=== PATIENT | female | born 1975 | race Hispanic/Latino ===

== ENCOUNTER 2019-02-11 17:21 | Emergency (ER) | payer SELFPAY ==
[2019-02-11] MEDS ORDERED: SODIUM CHLORIDE 0.9% 1000 ML 1,000 ML IV ONE ×2 (18:22→18:25)
[2019-02-11] MEDS ORDERED: LIDOCAINE (2%) 20 MG/1 ML VIAL 20 ML MDV INFILTRATI ONE (18:25)
[2019-02-11] MEDS ORDERED: SODIUM CHLORIDE 0.9% IRR 500 ML BOTTLE IR ONE (18:25)
[2019-02-11] MEDS ORDERED: TETANUS,DIPH,PERTUSS(ACELL) VACCINE 0.5 ML SYRINGE IM ONE (18:27)
--- NOTE | 2019-02-11 18:29 | Emergency Department Report ---
ED General Adult HPI - General Chief complaint: Syncope Stated complaint: SYNCOPAL EPISODE Time Seen by Provider: 02/11/19 18:11 Source: patient, EMS ( EMS documentation not available at time of chart dictation ), RN notes reviewed, old records reviewed Mode of arrival: Stretcher Limitations: No Limitations - History of Present Illness Initial comments: This is a 43-year-old female. I have not evaluated this patient in the past. Her past medical history includes tobacco use, former history of methamphetamine use, history of ovarian cancer, rheumatoid arthritis, depression, status post recent intentional overdose on Tegretol, Ativan, and Naprosyn. The overdose was on February 08. The patient is currently on a 1013 at a psychiatric hospital. She is brought to the hospital today by emergency medical services for fall, and loss of consciousness. Patient reports that since she's been hospitalized at the psychiatric institution, she's felt malaise, fatigue, sweating. She is not having physical pain. She reports that she felt sweaty, and threw up 3-4 times today. The emesis is nonbloody and nonbilious. She is not nauseous now. She d enies bloody diarrhea. She denies urinary symptoms. She denies DVT and pulmonary embolism risk factors. She reports that today she was waiting for lunch, when she lost consciousness. Prior to passing out, she does not have headache, neck pain, chest pain or abdominal pain. After the fall, she has a mild frontal headache, and superior lip laceration. She has no midline neck pain. She can't recall her last tetanus vaccination. -: Gradual, Sudden Location: face Radiation: non-radiation Severity scale (0 -10): 8 Quality: stabbing Consistency: constant Improves with: rest Worsens with: movement - Related Data Previous Rx's Medication Instructions Recorded Last Taken Type Magnesium Oxide 500 mg PO QDAY #10 capsule 02/11/19 Unknown Rx Allergies Allergy/AdvReac Type Severity Reaction Status Date / Time No Known Allergies Allergy Verified 02/11/19 19:00 ED Review of Systems ROS: Stated complaint: SYNCOPAL EPISODE Other details as noted in HPI Constitutional: malaise, weakness. denies: fever Eyes: denies: eye discharge ENT: denies: congestion Respiratory: denies: wheezing Cardiovascular: syncope. denies: chest pain Gastrointestinal: nausea, vomiting. denies: hematemesis, melena, hematochezia Genitourinary: denies: dysuria Musculoskeletal: myalgia Skin: lesions Neurological: weakness Psychiatric: anxiety, depression ED Past Medical Hx - Past Medical History Previous Medical History?: Yes Hx Psychiatric Treatment: Yes (major depressive disorder) - Surgical History Past Surgical History?: No - Social History Smoking Status: Never Smoker Substance Use Type: None - Medications Home Medications: Home Medications Medication Instructions Recorded Confirmed Last Taken Type Magnesium Oxide 500 mg PO QDAY #10 capsule 02/11/19 Unknown Rx ED Physical Exam - General Limitations: No Limitations General appearance: alert, in no apparent distress - Head Head exam: Present: atraumatic, normocephalic - Eye Eye exam: Present: normal appearance, PERRL, EOMI, other (visual acuity intact to finger counting, color perception, reading at a close distance). Absent: nystagmus - ENT ENT exam: Present: mucous membranes moist, TM's normal bilaterally, normal external ear exam, other (there is no nasal septal hematoma. There is no hemotympanum). Absent: normal exam (there is a superficial inferior lip laceration. There is an avulsion noted to the tissue on the oral aspect of the lower lip. Tooth #9 appears to be anteriorly subluxed. There is no laxity in the teeth.) - Neck Neck exam: Present: normal inspection, full ROM. Absent: tenderness, meningismus - Respiratory Respiratory exam: Present: normal lung sounds bilaterally. Absent: respiratory distress - Cardiovascular Cardiovascular Exam: Present: regular rate, normal rhythm, normal heart sounds. Absent: bradycardia, tachycardia, irregular rhythm, systolic murmur, diastolic murmur, rubs, gallop - GI/Abdominal GI/Abdominal exam: Present: soft, normal bowel sounds. Absent: distended, tenderness, guarding, rebound, rigid, pulsatile mass - Extremities Exam Extremities exam: Present: normal inspection, full ROM, other (2+ pulses noted in the bilateral upper, lower extremities. There is no long bone tenderness. Musculoskeletal compartments are soft. The pelvis is stable.). Absent: pedal edema, joint swelling, calf tenderness - Back Exam Back exam: Present: normal inspection - Neurological Exam Neurological exam: Present: alert, oriented X3, other (there is no facial droop. The tongue is midline. Extraocular movements are intact bilaterally. Patient speaking in full complete sentences. Shoulder shrug is intact bilaterally. Hearing is grossly intact bilaterally. Visual acuity intact to finger counting and color perception at a close distance. 5/5 strength 4 extremities. Sensation intact to light touch in 4 extremities.) - Psychiatric Psychiatric exam: Present: flat affect - Skin Skin exam: Present: warm, other (lower lip laceration is noted.) ED Course Vital Signs 02/11/19 02/11/19 02/11/19 18:01 18:09 18:15 Temperature 98 F Pulse Rate 65 80 102 H Respiratory 22 17 Rate Blood Pressure 113/68 Blood Pressure 123/75 [Left] O2 Sat by Pulse 100 100 Oximetry 02/11/19 02/11/19 02/11/19 18:30 18:45 19:00 Temperature Pulse Rate 82 82 88 Respiratory 15 14 20 Rate Blood Pressure 119/80 129/75 118/84 Blood Pressure [Left] O2 Sat by Pulse 100 100 Oximetry 02/11/19 02/11/19 02/11/19 19:15 19:30 19:45 Temperature Pulse Rate 88 87 89 Respiratory 16 23 15 Rate Blood Pressure 131/83 132/84 111/70 Blood Pressure [Left] O2 Sat by Pulse 100 100 100 Oximetry 02/11/19 02/11/19 02/11/19 20:00 20:15 21:32 Temperature Pulse Rate 91 H 94 H Respiratory 16 15 Rate Blood Pressure 113/71 121/79 121/79 Blood Pressure [Left] O2 Sat by Pulse 100 100 100 Oximetry 02/11/19 02/11/19 02/11/19 21:45 22:00 22:15 Temperature Pulse Rate Respiratory Rate Blood Pressure 122/75 122/66 131/71 Blood Pressure [Left] O2 Sat by Pulse 99 98 98 Oximetry - Reevaluation(s) Reevaluation #1: 02/11/19 19:02 Differential diagnosis, including but not limited to: Orthostasis, vagal event, medication side effect, structural cardiac disease, pulmonary embolism, arrhythmia, intracranial injury, facial injury, AAA, pulmonary embolus Assessment and plan: 43-year-old female with episode of unprovoked syncope, proceeding symptoms of nausea, vomiting, sweating, and weakness. Currently, she is afebrile with reassuring vital signs and clinically sober. Patient is clinically sober at this time. The cervical spine is cleared through nexus and mosotho c spine rule We will obtain CT scan brain and facial bones to exclude traumatic injury. Given that patient is endorsing unprovoked loss of consciousness, nausea, vomiting and chills, we will obtain urinalysis, CT scan of the abdomen pelvis. We will also obtain a CT angiogram of the chest to exclude pulmonary embolism. We'll give the patient a tetanus vaccination, repaired her lip laceration. She is listless but arousable at this time, sober, and not violent currently. Current psychiatric medications include Abilify, BuSpar, Celexa. Reevaluation #2: 02/11/19 19:05 Adverse reactions related to Abilify: Cardiovascular: Tachycardia (?2%), anxiety (?1%) Central nervous system: Extrapyramidal reaction (10%), drowsiness (9%), sedation (5%), dizziness (4%), dystonia (2%), fatigue (dose-related; 1% to 2%), restlessness (?1%), insomnia Adverse reactions related to Celexa: Central nervous system: Drowsiness (18%; dose related), insomnia (15%; dose related) Dermatologic: Diaphoresis (11%; dose related) Gastrointestinal: Nausea (21%), xerostomia (20%) 1% to 10%: Cardiovascular: Prolonged Q-T interval on ECG (2%), hypotension (?1%), orthostatic hypotension (?1%), tachycardia (?1%), bradycardia (1%) Adverse reactions related to BuSpar >10%: Central nervous system: Dizziness (3% to 12%) 1% to 10%: Cardiovascular: Chest pain (?1%) Central nervous system: Drowsiness (10%), headache (6%), nervousness (5%), confusion (2%), excitement (2%), numbness (2%), outbursts of anger (2%), abnormal dreams (?1%), ataxia (1%) paresthesia (1%) Patient believes that these are new medications for her. We will hold his medications in the emergency room. If no obvious culprit for loss of consciousness is identifiable here in the emergency room, and patient does not have additional loss of consciousness, we will recommend that these psychiatric medications be held. 02/11/19 20:54 Addendum to above. States not taking Celexa. States she is taking BuSpar, and Abilify, both which are new for her. Reevaluation #3: 02/11/19 22:23 Patient here for 5 hours without episodes of syncope. Troponin negative 2. Repeat EKG pending. CT scan brain, facial bones, chest, abdomen, pelvis negative for acute disease. Reevaluation #4: 02/11/19 22:24 Nursing team states that patient was able to walk with a steady gait. No untoward events or episodes of loss of consciousness have been noted. Patient will need to follow-up with an outpatient oral surgeon or dentist for her dentalgia, primary care doctor or office assistant receptionist for her history of syncope. At this point in time, based off of the history, physical, objective imaging studies and laboratory studies, lack of demonstrated arrhythmias, patient does not meet criteria for hospitalization. Reevaluation #5: 02/11/19 22:39 EKG unchanged 2. We will plan to discharge. - Laceration /Wound Repair Lower Medial Face Wound Location: mouth Wound Length (cm): 1 Wound's Depth, Shape: linear, irregular, contused tissue ("y shaped") Wound Explored: clean Irrigated w/ Saline (ccs): 250 Betadine Prep?: No Anesthesia: 1% Lidocaine Volume Anesthetic (ccs): 250 Wound Debrided: minimal Suture Size/Type: 6:0 Number of Sutures: 4 Layer Closure?: No Sterile Dressing Applied?: No Progress: The laceration was premedicated with topical viscous lidocaine. Then, it was gently irrigated with 250 mL of sterile saline at adequate pressure. The wound is then explored. No foreign bodies are noted. Anesthetized with 3 mL of 1% lidocaine without epinephrine using a 26-gauge needle. 4 interrupted 6-0 monofilament sutures are placed, with good cosmetic approximation, and the patient tolerated this procedure well. ED Medical Decision Making - Lab Data Result diagrams: 02/11/19 18:36 02/11/19 21:15 Vital Signs 02/11/19 18:09 Temperature 98 F Pulse Rate 80 Respiratory 22 Rate Blood Pressure 123/75 [Left] O2 Sat by Pulse 100 Oximetry Lab Results 02/11/19 Range/Units 18:36 WBC 11.8 H (4.5-11.0) K/mm3 RBC 4.43 (3.65-5.03) M/mm3 Hgb 11.2 (10.1-14.3) gm/dl Hct 35.5 (30.3-42.9) % MCV 80 (79-97) fl MCH 25 L (28-32) pg MCHC 32 (30-34) % RDW 15.1 (13.2-15.2) % Plt Count 230 (140-440) K/mm3 Lymph % (Auto) 9.9 L (13.4-35.0) % [place] % (Auto) 4.6 (0.0-7.3) % Eos % (Auto) 1.3 (0.0-4.3) % Baso % (Auto) 0.3 (0.0-1.8) % Lymph # 1.2 (1.2-5.4) K/mm3 [place] # 0.5 (0.0-0.8) K/mm3 Eos # 0.2 (0.0-0.4) K/mm3 Baso # 0.0 (0.0-0.1) K/mm3 Seg Neutrophils % 83.9 H (40.0-70.0) % Seg Neutrophils # 9.9 H (1.8-7.7) K/mm3 - EKG Data -: EKG Interpreted by Me EKG shows normal: sinus rhythm Rate: normal - EKG Data When compared to previous EKG there are: previous EKG unavailable 02/11/19 19:04 The EKG today shows a sinus rhythm for minute, normal axis, QTC is 445 ms, biphasic T-wave in V2, there is poor R-wave progression, the EKG is abnormal, the EKG is not consistent with STEMI. - Radiology Data Radiology results: pending Critical care attestation.: If time is entered above; I have spent that time in minutes in the direct care of this critically ill patient, excluding procedure time. ED Disposition Clinical Impression: History of syncope Lip laceration Qualifiers: Encounter type: initial encounter Qualified Code(s): S01.511A - Laceration without foreign body of lip, initial encounter Disposition: DC/TX-65 PSY HOSP/PSY UNIT Is pt being admited?: No Does the pt Need Aspirin: No Condition: Stable Additional Instructions: Recommend that patient not drive or operate motor vehicles for the next 6 candida hs, or until cleared to do so by a primary care doctor or office assistant receptionist. Recommend discontinuing Abilify, Celexa, BuSpar, as these medications have side effects which may make the patient drowsy and may have cardiovascular side effects which may have made the patient more prone to loss of consciousness. Recommend patient following up with a dentist within the next 7 days. Recommend patient following up with the primary care doctor or office assistant receptionist for loss of consciousness within the next 7 days. Recommend patient have facial stitches taken out in 5 days. Advance diet as tolerated, drink 4-6 cups of water per day, avoid sedating medications, return to the emergency room right away with new, worsened or different symptoms, or symptoms not present on the initial emergency room evaluation. Advance diet as tolerated. Avoid foods that are hard to chew and swallow. Patient may wash facial lacerations with gentle soap and water once every 12-24 hours. Patient may apply [id number] bacitracin to external lip if she so desires. Bacitracin may be applied once every 12-24 hours to the lip laceration. Take the magnesium oxide supplementation as directed. Prescriptions: Magnesium Oxide 500 mg PO QDAY #10 capsule Referrals: [facility] [Provider Group] - 3-5 Days [facility] [Outside] - 3-5 Days [facility] [Provider Group] - 3-5 Days
[2019-02-11] MEDS ORDERED: LIDOCAINE VISCOUS 2% 15 ML ORAL LIQD MM NR (18:30)
[2019-02-11 18:55] LABS: Basophils % (Auto) 0.3 % (0.0-1.8); Eosinophils # (Auto) 0.2 K/mm3 (0.0-0.4); Eosinophils % (Auto) 1.3 % (0.0-4.3); Hematocrit 35.5 % (30.3-42.9); Hemoglobin 11.2 gm/dl (10.1-14.3); Lymphocytes # (Auto) 1.2 K/mm3 (1.2-5.4); Lymphocytes % (Auto) 9.9 % (13.4-35.0); Mean Corpuscular HGB Conc 32 % (30-34); Mean Corpuscular Volume 80 fl (79-97); Monocytes # (Auto) 0.5 K/mm3 (0.0-0.8); Monocytes % (Auto) 4.6 % (0.0-7.3); Platelet Count 230 K/mm3 (140-440); Red Blood Count 4.43 M/mm3 (3.65-5.03); Red Cell Distribution Width 15.1 % (13.2-15.2)
--- NOTE | 2019-02-11 19:04 | XRay Report ---
CHEST 1 VIEW INDICATION: syncope. COMPARISON: None FINDINGS: Support devices: None. Heart: Within normal limits. Lungs/Pleura: No acute air space or interstitial disease. Additional findings: None. IMPRESSION: 1. No acute findings. Signer Name: Del Bonilla MD Signed: 02/11/2019 7:00 PM Workstation Name: [id number]
[2019-02-11 19:05] LABS: INR 0.95 (0.87-1.13)
[2019-02-11 19:18] LABS: Alanine Aminotransferase 10 units/L (7-56); Albumin 3.3 g/dL (3.9-5); BUN/Creatinine Ratio 17; Blood Urea Nitrogen 10 mg/dL (7-17); Calcium 8.6 mg/dL (8.4-10.2); Hemolysis Index 20
[2019-02-11] MEDS ORDERED: D5W/0.45% NACL 1,000 ML IV SCH (20:00)
--- NOTE | 2019-02-11 21:08 | Cat Scan Report ---
CT head without contrast INDICATION : syncope trauma. TECHNIQUE: Axial imaging performed from the skull apex through the skull base without the use of con trast. All CT scans at this location are performed using CT dose reduction for ALARA by means of aut omated exposure control. COMPARISON: None FINDINGS: Parenchyma: No acute intracranial hemorrhage or parenchymal abnormality. Ventricles: Ventricles are normal in size and appear symmetric. Soft tissues: Soft tissues including the orbits appear normal. Bones: No acute osseous abnormality. Sinuses: Sinuses and mastoid air cells are clear. IMPRESSION: No acute abnormality. Signer Name: Del Bonilla MD Signed: 02/11/2019 9:04 PM Workstation Name: [id number]
[2019-02-11 21:43] LABS: Bilirubin,Urine NEG (Negative); Blood,Urine NEG (Negative); Color,Urine Straw (Yellow); Mucus,Urine FEW /HPF; Protein,Urine <15 mg/dL mg/dL (Negative); Urobilinogen,Urine < 2.0 mg/dL (<2.0); WBC,Urine < 1.0 /HPF (0.0-6.0)
--- NOTE | 2019-02-11 21:44 | Cat Scan Report ---
CTA chest with contrast CT abdomen and pelvis with contrast INDICATION : unexplained syncope. TECHNIQUE: Axial imaging performed through the chest, with contrast bolus timing set to maximize opa cification of the pulmonary arteries. 3-plane MIP reformatted images were obtained. All CT scans at this location are performed using CT dose reduction for ALARA by means of automated exposure control. 100 mL of intravenous contrast administered. COMPARISON: None FINDINGS: CTA CHEST: Bolus: Contrast bolus timing is adequate. PTE: No filling defect is present to suggest PTE. Mediastinum: Heart and great vessels appear normal. No pathologic mediastinal adenopathy. Lungs: Lungs are clear. Bones: Degenerative changes in the spine with nothing acute. CT abdomen/pelvis: The liver, gallbladder, spleen, pancreas, adrenals, kidneys, and proximal GI tract appear unremarkabl e. Urinary bladder and reproductive organs are unremarkable with small likely functional ovarian cyst on the left and trace simple pelvic free fluid. No acute colonic abnormality identified. The appendix i s surgically absent. No acute osseous abnormality identified. IMPRESSION: 1. Negative for PTE. Clear lungs. 2. No acute abnormality in the abdomen. Signer Name: Del Bonilla MD Signed: 02/11/2019 9:39 PM Workstation Name: [id number]
--- NOTE | 2019-02-11 21:46 | Cat Scan Report ---
CT maxillofacial without contrast INDICATION : unexplained syncope. TECHNIQUE: Axial imaging performed through the face with reconstructed images also reviewed. All CT scans at this location are performed using CT dose reduction for ALARA by means of automated exposur e control. COMPARISON: CT head from today. FINDINGS: No acute osseous abnormality identified. Sinuses and mastoid air cells are clear. Soft tis sues are unremarkable. Orbits are normal. IMPRESSION: No acute abnormality. Signer Name: Del Bonilla MD Signed: 02/11/2019 9:41 PM Workstation Name: [id number]
[2019-02-11 21:50] LABS: Amphetamine Screen,Urine PRESUMPTIVE NEGATIVE; Benzodiazepines Screen,Urine PRESUMPTIVE NEGATIVE; Cannabinoid Screen,Urine PRESUMPTIVE NEGATIVE; Cocaine Screen,Urine PRESUMPTIVE NEGATIVE; Methadone Screen,Urine PRESUMPTIVE NEGATIVE; Opiate Screen,Urine PRESUMPTIVE NEGATIVE
[2019-02-11 22:00] LABS: BUN/Creatinine Ratio 20; Blood Urea Nitrogen 10 mg/dL (7-17); Calcium 8.2 mg/dL (8.4-10.2); Hemolysis Index 8
[2019-02-11] MEDS ORDERED: MAGNESIUM SULFATE 2 GM/50 ML BAG IV ONE (22:23)
[2019-02-11 22:26] VITALS: BP 131/71
== END 2019-02-12 00:30 ==
LOC: ED 17:21
DX: S01.511A Laceration without foreign body of lip, initial encounter (principal); R51 Headache; R55 Syncope and collapse; R10.9 Unspecified abdominal pain; F32.9 Major depressive disorder, single episode, unspecified; Z87.891 Personal history of nicotine dependence; W19.XXXA Unspecified fall, initial encounter; Y93.89 Activity, other specified; Y92.89 Other specified places as the place of occurrence of the external cause; Y99.8 Other external cause status
CPT/HCPCS: 12011; 36415; 70450; 70486; 71045; 71275; 74177; 80048; 80053; 80307; 81001; 82550; 83735; 84443; 84484; 84702; 85025; 85379; 85610; 90471; 90715; 93005; 93010; 96361; 96365; 96366; 99285; J3475; J7030; Q9967; 80320; G0480